=== PATIENT | female | born 1985 | race Caucasian/White ===

== ENCOUNTER 2017-03-19 14:59 | Outpatient (CLI) | payer OTHER ==
[~2017-03-19 14:59] MED LIST: Gadobenate Dimeglumine 529 MG/1 ML (20ML VIAL) ONE
--- NOTE | 2017-03-19 19:02 | MRI ---
HISTORY: Right sided headache for one to two months. History of seizure. PRE AND POSTCONTRAST ENHANCED MRI IMAGES OF BRAIN 03/19/17 Multiplanar and multisequence pre and postcontrast enhanced MRI images of the brain demonstrate no ev idence of intracranial masses or lesions. No evidence of diffusion restriction is seen. No evidence o f abnormal areas of intracranial enhancement seen. The ventricles are of normal size. Normal flow voi ds seen in the major intracranial vessels. No evidence of areas of ferreira-white differentiation abnorma lity seen. The temporal lobes unremarkable. IMPRESSION: Unremarkable pre and postcontrast enhanced MRI images of the brain. POS: [facility]
== END 2017-03-19 15:00 | disposition home or self-care (01) ==
LOC: MRI 14:59
PROVIDERS: ATTEND Family Medicine
DX: G40.909 Epilepsy, unspecified, not intractable, without status epilepticus (principal); R51 Headache
CPT/HCPCS: 70553; A9579